=== PATIENT | female | born 2005 | race Caucasian/White ===

== ENCOUNTER 2025-05-18 10:33 | Emergency (ER) | payer BC, SELFPAY ==
--- NOTE | ~2025-05-18 | US_ITS ---
EXAMINATION: US venous doppler [facility] DATE: 05/18/2025 12:02 INDICATION: Left lower limb pain and swelling TECHNIQUE: Grayscale ultrasound images without and with compression and Doppler ultrasound images of the left lower extremity veins were obtained. COMPARISON: None. FINDINGS: The visualized portions of left common femoral vein, profunda (deep) femoral vein, femoral vein, popliteal vein, peroneal veins, posterior tibial veins, gastrocnemius vein and greater saphenous vein outflow are patent. IMPRESSION: 1. No deep venous thrombosis in the left lower limb. Reviewed, dictated and finalized at location A.
[2025-05-18 10:44] VITALS: BP 139/95; PULSE 102; RESP 20; TEMP 37.1; O2SAT 99
--- NOTE | 2025-05-18 11:11 | PC.NURSE ---
No wound or injury to assess. Pt. only c/o tightness to L. thigh and L. calf and tingling to L. calf. No redness, swelling, or areas of broken skin. No signs of decreased perfusion to LLE.
--- NOTE | 2025-05-18 12:11 | ED.GENADULT ---
HPI - General Adult General Chief complaint: Extremity Injury, Lower Stated complaint: Possible Blood Clot, left knee Time Seen by Provider: 05/18/25 11:09 History of Present Illness HPI narrative: Amanda Wood is a 19-year-old female who presents today with concern of having a possible blood clot her left leg. She states that she has been tested for a blood clotting disorder in the past but it was negative. She denies any other past medical problems she is not on any daily medications. But she admits to taking Plan B 2 days ago does not note this is related or not. But she says that today she woke up and started having some crampy pain in the left upper leg that went down to behind her knee and having pain and fullness to her left knee. States pain is worse when she tries to flex her knee and raise her leg up. She felt like she had some warmness earlier today but is not appreciated at this time. Related Data Allergies Allergy/AdvReac Type Severity Reaction Status Date / Time No Known Allergies Allergy Verified 05/18/25 10:47 Review of Systems Review of Systems: All systems reviewed & are unremarkable except as noted in HPI and below Exam Narrative: GENERAL: Well-appearing, well-nourished, and in no acute distress. HEAD: Normocephalic, atraumatic. EYES: PERRLA and EOMI. ENT: Nares clear, no rhinorrhea or epistaxis. Mucous membranes moist. Oropharynx without tonsillar hypertrophy exudate or other lesions. NECK: Supple. No adenopathy or masses. CHEST: Clear to auscultation. No respiratory distress. No wheezes rales or rhonchi HEART: Regular rate and rhythm. No murmur heard. Normal peripheral pulses. ABDOMEN: Soft, nontender, nondistended, normal active bowel sounds. EXTREMITIES: Normal range of motion. No edema. SKIN: Warm, dry, no rash. NEURO: No focal deficits. Alert and oriented x3. PSYCH: Normal mood and affect. Course Vital Signs Vital signs: Vital Signs Temperature 37.1 C 05/18/25 10:44 Pulse Rate 102 H 05/18/25 10:44 Respiratory Rate 20 05/18/25 10:44 Blood Pressure 139/95 H 05/18/25 10:44 Pulse Oximetry 99 05/18/25 10:44 Oxygen Delivery Room Air 05/18/25 10:44 Temperature 37.1 C 05/18/25 10:44 Pulse Rate 70 05/18/25 12:30 Respiratory Rate 14 05/18/25 12:30 Blood Pressure 126/85 05/18/25 12:30 Pulse Oximetry 100 05/18/25 12:30 Oxygen Delivery Room Air 05/18/25 10:44 Medical Decision Making MDM Narrative Medical decision making narrative: 19-year-old female who presents with concerns of having a possible DVT to her left lower extremity. On exam I do not appreciate any significant redness, swelling, warmth, deformity noted to her left leg. She has persistent that she feels a fullness behind her knee and some pain whenever I palpated back there I do not appreciate this on exam however will obtain ultrasound to ensure there was no blood clot in her left lower extremity. Ultrasound-negative for blood clot Patient will be discharged home in stable condition explained this could have been muscle spasm muscle strain maybe something that she had done days prior encourage aceves therapy close PCP follow-up return precautions provided. Medical Records Medical records reviewed: Yes I reviewed the external patient's medical records. Vital Signs Vital Signs: Vital Signs Temperature 37.1 C 05/18/25 10:44 Pulse Rate 102 H 05/18/25 10:44 Respiratory Rate 20 05/18/25 10:44 Blood Pressure 139/95 H 05/18/25 10:44 Pulse Oximetry 99 05/18/25 10:44 Oxygen Delivery Room Air 05/18/25 10:44 Temperature 37.1 C 05/18/25 10:44 Pulse Rate 70 05/18/25 12:30 Respiratory Rate 14 05/18/25 12:30 Blood Pressure 126/85 05/18/25 12:30 Pulse Oximetry 100 05/18/25 12:30 Oxygen Delivery Room Air 05/18/25 10:44 Vitals reviewed by Imaging Data Radiologist's impression: Impressions Venous Doppler Study 05/18/25 12:04 IMPRESSION: 1. No deep venous thrombosis in the left lower limb. Discharge Plan Discharge Clinical Impression: Muscle strain, Acute pain of left lower extremity Patient Disposition: Home Condition: Stable Instructions: Antibiotic Form Additional Instructions: Your ultrasound today is negative for any findings of a blood clot. This pain could be related to muscle spasms or muscle strain may continue to take Tylenol Motrin as needed, ice, elevate, rest. Please follow-up with the primary care doctor for further evaluation. If he should develop any worsening or new symptoms as always he may return to the emergency department. Patient Language: Slovak Follow-up/Referrals: UNKNOWN,DOCTOR [Primary Care Provider] Stand Alone Forms: Work/School Release IP Time of Disposition: 12:17
[2025-05-18 12:30] VITALS: BP 126/85; PULSE 70; RESP 14; O2SAT 100
== END 2025-05-18 12:33 | disposition home or self-care (01) ==
PROVIDERS: Emergency Provider Nurse Practitioner Family
DX: S76.912A Strain of unspecified muscles, fascia and tendons at thigh level, left thigh, initial encounter (principal); X58.XXXA Exposure to other specified factors, initial encounter
CPT/HCPCS: 93971; 99284